=== PATIENT | female | born 1995 | race Caucasian/White ===

== ENCOUNTER 2018-08-03 21:21 | Emergency (ER) | payer OTHER ==
[~2018-08-03] VITALS: Ht 160 cm; Wt 83.9 kg
[~2018-08-03 21:21] MED LIST: ACET325 PO; ALBU90OI61 INH; AMOX250 PO; AMOX500 PO; ARIP10; ARIP10 PO; ASCO500 PO; Amoxicillin500 MG PO; CEPH250A PO; CEPH500 PO; CLON.1; CLONIDINE; CODACE30 PO; Cleocin HCl150 MG PO; Cortisporin Ear10 ML RIGHTEAR; DEXT15ER; DIPH50 PO; Echinacea80 MG; FAMO40 PO; FLUO10; GUAN1; HYDACE5 PO; HYDROXYZINE; IBUP400 PO; IBUP800 PO; MELA3; METPHE18ER PO; METPHE27ER; METPHE27ER PO; MULVITMINE PO; NAPR500 PO; NAPR550 PO; NICO14TP TOP; NICO2 PO; ONDA4ODT MM; ONDA8 PO; PENVK500 PO; PROC10 PO; PROM25 PO; RISPERIDONE; RXCODACET PO; RXNAPNA550 PO; SULTRIDS PO; TOPAMAX; TOPI25; TRAM50 PO; TRAZ50 PO; Verotin-Gr Cap1 EACH PO; WELLBUTRIN
[2018-08-04 00:30] LABS: Influenza A Positive (NEGATIVE); Influenza B Negative (NEGATIVE)
[2018-08-04] MEDS ORDERED: ERYT1OIN BOTHEYES (00:39)
== END 2018-08-04 01:06 | disposition home or self-care (01) ==
LOC: ER 21:21
PROVIDERS: Emergency Medicine
DX: S00.12XA Contusion of left eyelid and periocular area, initial encounter (principal); J11.1 Influenza due to unidentified influenza virus with other respiratory manifestations; R04.0 Epistaxis; H10.9 Unspecified conjunctivitis; R00.0 Tachycardia, unspecified; Y04.8XXA Assault by other bodily force, initial encounter; F17.210 Nicotine dependence, cigarettes, uncomplicated
CPT/HCPCS: 71046; 87804; 94640; 99284-25

== ENCOUNTER 2020-06-23 12:42 | Emergency (ER) | payer OTHER ==
[~2020-06-23] VITALS: Ht 162.6 cm; Wt 59.0 kg
[~2020-06-23 12:42] MED LIST changes: +ERYT1OIN BOTHEYES
[2020-06-23 14:24] LABS: Source, Urine Voided
[2020-06-23 14:32] LABS: BASOPHILS ABSOLUTE AUTO 0.03 K/mm3 (0.00-0.23); BASOPHILS PERCENT AUTO 0 % (0-2); EOSINOPHILS ABSOLUTE AUTO 0.21 K/mm3 (0.00-0.68); EOSINOPHILS PERCENT AUTO 2 % (0-6); Hematocrit 45.8 % (33.0-51.0); Hemoglobin 14.8 g/dL (11.5-16.0); IMMATURE GRAN ABSOLUTE AUTO 0.04 K/mm3 (0.00-0.10); IMMATURE GRAN PERCENT AUTO 0 % (0-1); LYMPHOCYTES ABSOLUTE AUTO 2.52 K/mm3 (0.84-5.20); LYMPHOCYTES PERCENT AUTO 19 % (21-46); MONOCYTES ABSOLUTE AUTO 0.85 K/mm3 (0.16-1.47); MONOCYTES PERCENT AUTO 7 % (4-13); Mean Corpuscular HGB 28.4 pg (26.0-34.0); Mean Corpuscular HGB Conc 32.3 g/dL (31.5-36.5); Mean Corpuscular Volume 88 fL (80-100); Mean Platelet Volume 8.8 fL (9.1-12.4); NEUTROPHILS ABSOLUTE AUTO 9.51 K/mm3 (1.96-9.15); NEUTROPHILS PERCENT AUTO 72 % (41-73); Platelet Count 328 K/mm3 (150-400); RDW Coefficient Variation 13.2 % (11.7-14.2); RDW Standard Deviation 42.4 fL (35.1-46.3); Red Blood Cell Count 5.21 M/mm3 (3.80-5.20); White Blood Cell Count 13.16 K/mm3 (4.00-11.30)
[2020-06-23 14:33] LABS: Appearance, Urine Hazy (Clear); Bilirubin, Urine Neg (Neg); Blood, Urine 1+ (Neg); Color, Urine Amber (P-Yellow); Glucose Qualitative, Urine Neg (Neg); Ketones, Urine Neg (Neg); Leukocyte Esterase, Urine 3+ (Neg); Nitrite, Urine Neg (Neg); Protein, Urine 1+ (Neg); Urobilinogen, Urine 2+ (Normal)
[2020-06-23 14:47] LABS: U Amphetamine Screen DETECTED; U Barbituate Screen Not Detected; U Benzodiazapine Screen Not Detected; U Buprenorphine Screen Not Detected; U Cannabinoids Screen DETECTED; U Cocaine Screen Not Detected; U Methadone Screen Not Detected; U Methamphetamine Screen DETECTED; U Opiates Screen DETECTED; U Oxycodone Screen Not Detected; U Phencyclidine Screen Not Detected; U Propoxyphene Screen Not Detected
[2020-06-23 14:50] LABS: Bacteria Rare /hpf; Mucus Mod (0-Heavy); Squamous Epithelial Cells Mod /hpf (Few); White Blood Cells, Urine 50-100 /hpf (0-5)
[2020-06-23 14:54] LABS: Alanine Aminotransfer (ALT/SGP 28 U/L (12-78); Albumin, Blood 3.6 g/dL (3.4-5.0); Alk Phos 77 U/L (50-136); Anion Gap 5 mmol/L (6-16); Aspartate Aminotrans (AST/SGOT 17 U/L (12-37); Bilirubin, Total 1.2 mg/dL (0.1-1.0); Blood Urea Nitrogen 7 mg/dL (8-24); Bun/Creatinine Ratio 10.9 (12.0-20.0); CO2, Blood 29 mmol/L (21-32); Calcium, Blood 8.5 mg/dL (8.5-10.1); Chloride, Blood 105 mmol/L (98-108); Creatinine, Blood 0.65 mg/dL (0.40-1.00); Ethanol (Alcohol), Blood, Med <3 mg/dL; Globulin, Blood 3.6 g/dL (2.2-4.0); Glomerular Filtration Rate >60 (60-); Glucose, Blood 88 mg/dL (70-99); Potassium, Blood 3.6 mmol/L (3.5-5.5); Salicylate <1.7 mg/dL (2.8-20.0); Sodium, Blood 139 mmol/L (136-145); Total Protein, Blood 7.2 g/dL (6.4-8.2)
[2020-06-23 14:59] LABS: Acetaminophen, Random <2.0 ug/mL (10.0-30.0)
[2020-06-23] MEDS ORDERED: Macrobid 100 M100 MG PO (15:14)
== END 2020-06-23 15:21 | disposition home or self-care (01) ==
LOC: ER 12:42
PROVIDERS: Emergency Medicine
DX: F19.10 Other psychoactive substance abuse, uncomplicated (principal); R06.00 Dyspnea, unspecified; F17.210 Nicotine dependence, cigarettes, uncomplicated
CPT/HCPCS: 71045; 80053; 81001; 81025; 84484; 84702; 85025; 87086; 93005; 93010; 99285-25; G0480

== ENCOUNTER 2022-05-22 17:12 | Emergency (ER) | payer OTHER ==
[~2022-05-22] VITALS: Ht 160 cm; Wt 86.2 kg
[~2022-05-22 17:12] MED LIST changes: +Macrobid 100 M100 MG PO
[2022-05-22 18:26] LABS: BASOPHILS ABSOLUTE AUTO 0.04 K/mm3 (0.00-0.23); BASOPHILS PERCENT AUTO 0 % (0-2); EOSINOPHILS ABSOLUTE AUTO 0.07 K/mm3 (0.00-0.68); EOSINOPHILS PERCENT AUTO 0 % (0-6); Hematocrit 46.5 % (33.0-51.0); Hemoglobin 15.6 g/dL (11.5-16.0); IMMATURE GRAN ABSOLUTE AUTO 0.07 K/mm3 (0.00-0.10); IMMATURE GRAN PERCENT AUTO 0 % (0-1); LYMPHOCYTES ABSOLUTE AUTO 1.22 K/mm3 (0.84-5.20); LYMPHOCYTES PERCENT AUTO 8 % (21-46); MONOCYTES ABSOLUTE AUTO 0.97 K/mm3 (0.16-1.47); MONOCYTES PERCENT AUTO 6 % (4-13); Mean Corpuscular HGB 27.4 pg (26.0-34.0); Mean Corpuscular HGB Conc 33.5 g/dL (31.5-36.5); Mean Corpuscular Volume 82 fL (80-100); Mean Platelet Volume 8.9 fL (9.1-12.4); NEUTROPHILS ABSOLUTE AUTO 13.34 K/mm3 (1.96-9.15); NEUTROPHILS PERCENT AUTO 85 % (41-73); Platelet Count 390 K/mm3 (150-400); RDW Coefficient Variation 13.4 % (11.7-14.2); RDW Standard Deviation 39.7 fL (35.1-46.3); Red Blood Cell Count 5.69 M/mm3 (3.80-5.20); White Blood Cell Count 15.71 K/mm3 (4.00-11.30)
[2022-05-22 18:36] LABS: Influenza B, PCR NEGATIVE (NEGATIVE); Resp Syncytial Virus, PCR NEGATIVE (NEGATIVE); SARS-Cov-2 (COVID-19) PCR, MMC NEGATIVE (NEGATIVE)
[2022-05-22 18:44] LABS: Influenza A, PCR POSITIVE (NEGATIVE)
[2022-05-22 18:48] LABS: Albumin, Blood 4.1 g/dL (3.4-5.0); Bun/Creatinine Ratio 7.3 (12.0-20.0); Calcium, Blood 9.2 mg/dL (8.5-10.1); Creatinine, Blood 0.55 mg/dL (0.40-1.00); Potassium, Blood 3.6 mmol/L (3.5-5.5); Total Protein, Blood 8.1 g/dL (6.4-8.2)
== END 2022-05-22 23:28 | disposition left against medical advice (07) ==
LOC: ER 17:12
PROVIDERS: Student in an Organized Health Care Education/Training Program
DX: R06.02 Shortness of breath (principal); Z53.21 Procedure and treatment not carried out due to patient leaving prior to being seen by health care provider
CPT/HCPCS: 0241U; 36415; 80053; 84484; 85025; 93005; 93010

== ENCOUNTER 2023-02-16 02:45 | Emergency (ER) | payer OTHER ==
[~2023-02-16] VITALS: Ht 157.5 cm; Wt 70.5 kg
[2023-02-16 06:41] VITALS: BP 111/73
[2023-02-16 08:05] LABS: BASOPHILS ABSOLUTE AUTO 0.02 K/mm3 (0.00-0.23); BASOPHILS PERCENT AUTO 0 % (0-2); EOSINOPHILS ABSOLUTE AUTO 0.09 K/mm3 (0.00-0.68); EOSINOPHILS PERCENT AUTO 1 % (0-6); Hematocrit 35.4 % (33.0-51.0); Hemoglobin 11.6 g/dL (11.5-16.0); IMMATURE GRAN ABSOLUTE AUTO 0.01 K/mm3 (0.00-0.10); IMMATURE GRAN PERCENT AUTO 0 % (0-1); LYMPHOCYTES ABSOLUTE AUTO 1.96 K/mm3 (0.84-5.20); LYMPHOCYTES PERCENT AUTO 22 % (21-46); MONOCYTES ABSOLUTE AUTO 0.64 K/mm3 (0.16-1.47); MONOCYTES PERCENT AUTO 7 % (4-13); Mean Corpuscular HGB 26.8 pg (26.0-34.0); Mean Corpuscular HGB Conc 32.8 g/dL (31.5-36.5); Mean Corpuscular Volume 82 fL (80-100); NEUTROPHILS ABSOLUTE AUTO 6.22 K/mm3 (1.96-9.15); NEUTROPHILS PERCENT AUTO 70 % (41-73); Platelet Count 278 K/mm3 (150-400); RDW Coefficient Variation 12.5 % (11.7-14.2); RDW Standard Deviation 37.2 fL (35.1-46.3); Red Blood Cell Count 4.33 M/mm3 (3.80-5.20); White Blood Cell Count 8.94 K/mm3 (4.00-11.30)
[2023-02-16 08:36] LABS: Albumin, Blood 3.3 g/dL (3.4-5.0); Albumin/Globulin Ratio 0.9 (0.8-1.8); Bilirubin, Total 0.9 mg/dL (0.1-1.0); Bun/Creatinine Ratio 14.3 (12.0-20.0); Calcium, Blood 8.9 mg/dL (8.5-10.1); Creatinine, Blood 0.49 mg/dL (0.40-1.00); Globulin, Blood 3.5 g/dL (2.2-4.0); Potassium, Blood 3.8 mmol/L (3.5-5.5); Total Protein, Blood 6.8 g/dL (6.4-8.2)
[2023-02-16] MEDS ORDERED: CEFP200 PO (08:36)
[2023-02-16] MEDS ORDERED: CLIN300 PO (08:36)
[2023-02-16] MEDS ORDERED: PROBIOTIC1 EA13 PO (08:37)
== END 2023-02-16 10:37 | disposition home or self-care (01) ==
LOC: ER 02:45
PROVIDERS: Emergency Medicine
DX: L03.213 Periorbital cellulitis (principal); L03.211 Cellulitis of face; J45.909 Unspecified asthma, uncomplicated; F17.210 Nicotine dependence, cigarettes, uncomplicated
CPT/HCPCS: 70487; 80053; 85025; 96365-59; 96375-59; 99284-25; J1100; Q9967

== ENCOUNTER 2023-08-06 22:02 | Emergency (ER) | payer OTHER ==
[~2023-08-06] VITALS: Ht 165.1 cm; Wt 72.6 kg
[~2023-08-06 22:02] MED LIST changes: +CEFP200 PO; +CLIN300 PO; +PROBIOTIC1 EA13 PO
[2023-08-06 22:49] VITALS: BP 129/81
== END 2023-08-07 00:42 | disposition left against medical advice (07) ==
LOC: ER 22:02
DX: M79.662 Pain in left lower leg (principal); Z53.29 Procedure and treatment not carried out because of patient's decision for other reasons
CPT/HCPCS: 73562-LT; 73590; 99281-25

== ENCOUNTER 2025-04-08 22:54 | Emergency (ER) | payer OTHER ==
[~2025-04-08] VITALS: Ht 160 cm; Wt 72.6 kg
[2025-04-08] MEDS ORDERED: Naloxone HCl 0.4MG / ML 1ML Vial IV PRN (23:20)
[2025-04-08] MEDS ORDERED: Ondansetron HCl 2 MG / ML 2ML Vial IV ONE (23:20)
[2025-04-08] MEDS ORDERED: NS 1,000 ML IV SCH (23:20)
[2025-04-09] MEDS ORDERED: RX Prepack 2 Sprays Naloxone HCL 4 MG/SPRAY UD ONE (00:20)
[2025-04-09] MEDS ORDERED: OMEP20ER PO ×2 (00:27→00:44)
[2025-04-09] MEDS ORDERED: ONDA4 PO ×2 (00:27→00:44)
[2025-04-09] MEDS ORDERED: Ondansetron 4 MG SoluTab SL ONE (00:30)
[2025-04-09 00:38] VITALS: BP 111/78
== END 2025-04-09 00:50 | disposition home or self-care (01) ==
LOC: ER 22:54
DX: F11.10 Opioid abuse, uncomplicated (principal); F15.10 Other stimulant abuse, uncomplicated; Z79.2 Long term (current) use of antibiotics; Z79.899 Other long term (current) drug therapy; F17.210 Nicotine dependence, cigarettes, uncomplicated
CPT/HCPCS: 82947; 99284; A9270; J2312; J2405; J7030